=== PATIENT | female | born 2000 | race Caucasian/White ===

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

== ENCOUNTER 2019-07-21 23:09 | Emergency (ER) | payer MEDICAID ==
[~2019-07-21] VITALS: Ht 157.5 cm; Wt 71.2 kg
[2019-07-21 23:19] VITALS: Ht 157.5 cm; Wt 71.2 kg
[2019-07-22 00:16] VITALS: BP 141/90
== END 2019-07-22 00:16 | disposition home or self-care (01) ==
LOC: ED 23:09
DX: S21.202A Unspecified open wound of left back wall of thorax without penetration into thoracic cavity, initial encounter (principal); W34.09XA Accidental discharge from other specified firearms, initial encounter; Y93.89 Activity, other specified; Y92.89 Other specified places as the place of occurrence of the external cause; Y99.8 Other external cause status
CPT/HCPCS: J2001